=== PATIENT | female | born 1965 | race Caucasian/White ===

== ENCOUNTER 2021-04-16 13:22 | Emergency (ER) | payer BC ==
[~2021-04-16] VITALS: Ht 157.5 cm; Wt 46.3 kg
[2021-04-16] MEDS ORDERED: ASPIRIN (13:33)
[2021-04-16] MEDS ORDERED: SYNTHROID (13:33)
--- NOTE | 2021-04-16 13:39 | NUR ---
EKG done & handed to MD. Medical screening exam in progress, pending orders.
[2021-04-16 13:55] LABS: HEMATOCRIT 36.5 % (31.2-41.9); MEAN CORPUSCULAR HEMOGLOBIN 30.4 uug (24.7-32.8); MEAN CORPUSCULAR VOLUME 90.5 fL (75.5-95.3); PLATELET COUNT (AUTO) 266 K/uL (179-408)
[2021-04-16 14:04] LABS: CARBON DIOXIDE 29 mmol/L (21-32); CHLORIDE 102 mmol/L (98-107); CREATININE 0.6 mg/dL (0.6-1.3); GLUCOSE 105 mg/dL (74-106); POTASSIUM 4.4 mmol/L (3.5-5.1); UREA NITROGEN, BLOOD 21 mg/dL (7-18)
--- NOTE | 2021-04-16 14:11 | NUR ---
RN called, Patient ready with consent. To do exam prior of waiting for evaluation of D-dimmer Per Doctor
--- NOTE | 2021-04-16 14:11 | NUR ---
Waiting for D-allegra, waiting for RN to call when ready.
[2021-04-16 14:17] LABS: ALANINE AMINOTRANSFERASE 43 U/L (14-59); ALKALINE PHOSPHATASE 93 U/L (50-136); ASPARTATE AMINOTRANSFERASE 24 U/L (15-37); BILIRUBIN,TOTAL 0.2 mg/dL (0.2-1.0); TOTAL PROTEIN, SERUM 7.1 g/dL (6.4-8.2)
[2021-04-16] MEDS ORDERED: SWABABLE VALVE TRANSFER SET EA MC ONE (14:23)
[2021-04-16] MEDS ORDERED: IV NORMAL SALINE 250 ML IV ONE (14:23)
[2021-04-16] MEDS ORDERED: IOHEXOL 350 100 ML INFUS..BTL ONE (14:23)
--- NOTE | 2021-04-16 15:09 | NUR ---
Patient discharged to home in stable condition. Written and verbal after care instructions given. Patient verbalizes understanding of instructions. Stressed follow up or return to ER for worsening s/s.
--- NOTE | 2021-04-16 15:09 | NUR ---
IV removed. Catheter intact and site benign. Pressure and 4x4 gauze applied to site. No bleeding noted.
== END 2021-04-16 15:10 | disposition home or self-care (01) ==
LOC: ER 13:31
DX: R07.89 Other chest pain (principal); E03.9 Hypothyroidism, unspecified; Z88.0 Allergy status to penicillin; Z88.8 Allergy status to other drugs, medicaments and biological substances; Z79.82 Long term (current) use of aspirin; Z79.899 Other long term (current) drug therapy
CPT/HCPCS: 36415; 71275; 80053; 83880; 84484; 85025; 85379; 99285; Q9967; A4663; J7050